=== PATIENT | female | born 1960 | race Asian ===

== ENCOUNTER 2017-05-03 07:12 | Day surgery (SDC) | payer OTHER ==
[~2017-05-03] VITALS: Ht 160 cm; Wt 60.0 kg
[~2017-05-03 07:12] MED LIST: ALBU8.5H8 IH; LEVO500 PO; MONT10TA21 PO; OMEP10 PO; PRED10 PO; SODIUM CHLORIDE 0.9% 1,000 ML IV ONE
[2017-05-03] MEDS ORDERED: LIDOCAINE HCL 2% 30 ML JELLY TP ONE (07:13)
[2017-05-03] MEDS ORDERED: ALBUTEROL SULFATE 2.5 MG/0.5 ML NEB SOLUTION NEB ONE (07:13)
[2017-05-03] MEDS ORDERED: BENZOCAINE 20% 50 MCG/SPRAY 57 GM TP ONE (07:13)
[2017-05-03] MEDS ORDERED: SODIUM CHLORIDE 0.9% 1,000 ML IV ONE (07:22)
[2017-05-03] MEDS ORDERED: NAPR-58 PO (07:42)
[2017-05-03] MEDS ORDERED: BECL8.7A7 PO (07:42)
[2017-05-03] MEDS ORDERED: RANI150T7 PO (07:42)
[2017-05-03] MEDS ORDERED: AZIT250T9 PO (07:42)
[2017-05-03] MEDS ORDERED: MIDAZOLAM HCL 2 MG/2 ML VIAL ONE (07:48)
[2017-05-03] MEDS ORDERED: FentaNYL CITRATE-PF 100 MCG/2 ML VIAL ONE (07:48)
[2017-05-03] MEDS ORDERED: MethylPREDNISolone SOD SUCC 125 MG/2 ML VIAL IVP ONE (08:45)
[2017-05-03] MEDS ORDERED: MethylPREDNISolone SOD SUCC 125 MG/2 ML VIAL ONE (09:55)
[2017-05-03] MEDS ORDERED: OXYGEN THERAPY IH SCH (20:00)
== END 2017-05-03 10:40 | disposition home or self-care (01) ==
LOC: SURGERY 07:12
PROVIDERS: ATTEND Internal Medicine Critical Care Medicine
DX: J38.4 Edema of larynx (principal); B37.0 Candidal stomatitis; K21.9 Gastro-esophageal reflux disease without esophagitis; M19.90 Unspecified osteoarthritis, unspecified site; J44.9 Chronic obstructive pulmonary disease, unspecified; Z98.890 Other specified postprocedural states; Z79.899 Other long term (current) drug therapy
CPT/HCPCS: 31623; 31624; 71045; 87015; 87070; 87205; 87220; 88108; 88312; J2250; J2930; J3010; J7030

== ENCOUNTER 2020-07-20 07:11 | Day surgery (SDC) | payer OTHER ==
[2020-07-18 10:39] LABS: COVID AG,FIA SOURCE NASOPHARYNGEAL
[~2020-07-20] VITALS: Ht 157.5 cm; Wt 63.6 kg
[~2020-07-20 07:11] MED LIST changes: +BECL10.62 IH; -LEVO500 PO; +MONT-35 PO; -MONT10TA21 PO; +NAPR-1025 PO
[2020-07-20] MEDS ORDERED: LIDOCAINE 2% 30 ML JELLY TP ONE (07:12)
[2020-07-20] MEDS ORDERED: LIDOCAINE 2% 5 ML JELLY TP ONE (07:12)
[2020-07-20] MEDS ORDERED: ALBUTEROL SULFATE 2.5 MG/0.5 ML NEB SOLUTION NEB ONE (07:12)
[2020-07-20] MEDS ORDERED: LIDOCAINE 4% 50 ML SOLUTION TP ONE (07:12)
[2020-07-20] MEDS ORDERED: BENZOCAINE 20% 50 MCG/SPRAY 57 GM TP ONE (07:12)
[2020-07-20] MEDS ORDERED: CHOL200016 PO (07:28)
[2020-07-20] MEDS ORDERED: SODIUM CHLORIDE 0.9% 1,000 ML ONE (07:32)
[2020-07-20] MEDS ORDERED: MIDAZOLAM HCL 2 MG/2 ML VIAL ONE (08:14)
[2020-07-20] MEDS ORDERED: FentaNYL CITRATE PF 100 MCG/2 ML VIAL ONE (08:15)
[2020-07-20] MEDS ORDERED: MethylPREDNISolone SOD SUCC 125 MG/2 ML VIAL IVP ONE (09:00)
[2020-07-20] MEDS ORDERED: MethylPREDNISolone SOD SUCC 125 MG/2 ML VIAL ONE (09:26)
[2020-07-20] MEDS ORDERED: OXYGEN THERAPY IH SCH (20:00)
== END 2020-07-20 10:05 | disposition home or self-care (01) ==
LOC: SURGERY 07:11
PROVIDERS: ATTEND Internal Medicine Critical Care Medicine
DX: R05 Cough (principal); R04.2 Hemoptysis; J34.89 Other specified disorders of nose and nasal sinuses; J98.8 Other specified respiratory disorders; B37.0 Candidal stomatitis; J38.4 Edema of larynx; Z20.822 Contact with and (suspected) exposure to COVID-19; Z79.899 Other long term (current) drug therapy
CPT/HCPCS: 31623; 31624; 71045; 87015; 87070; 87101; 87205; 87206; 87220; 87426; 88108; 88184; 88185; 88312; C9803; J2250; J2930; J3010; J7030; J7613; Z7610